=== PATIENT | male | born 1965 | race African-American/Black ===

== ENCOUNTER 2016-11-03 18:04 | Emergency (ER) | payer BC ==
[2016-11-03 18:22] VITALS: TEMP 98.9
--- NOTE | 2016-11-03 19:07 | ED ---
General Adult HPI - General Chief complaint: Recheck/Abnormal Lab/Rx Stated complaint: Blood pressure Time Seen by Provider: 11/03/16 18:35 Source: patient Mode of arrival: ambulatory Limitations: no limitations - History of Present Illness Initial comments: Is a 51-year-old male with history of hypertension or presents emergency department for elevated blood pressures were last week. He states that his blood pressures of been running 160-170 systolic over 110-120 diastolic. He states that he is generalized always throughout the day and intermittent headaches. He also states he has constant chest pain that is been there for the last 5 years. He saw his doctor 3 days ago who placed him on a new blood pressure medication and he just started taking it yesterday. He states that today he had another high blood pressure readings is having come emergency department. He denies any focal weakness, numbness, tingling, or difficulty with gait. He states his headache is very mild. No head trauma. He's been compliant with all his other medications. He does state that he recently had a stress test that was normal within the last couple of months. - Related Data Home Medications Medication Instructions Recorded Confirmed Aspirin 162 tab PO BID 08/11/16 11/03/16 Carvedilol [Carvedilol] 25 mg PO BID 08/11/16 11/03/16 Hydrochlorothiazide [Hydrodiuril] 25 mg PO DAILY 08/11/16 11/03/16 amLODIPine BESYLATE [Amlodipine 10 mg PO BID 08/11/16 11/03/16 Besylate] Irbesartan [Avapro] 300 mg PO DAILY 11/03/16 11/03/16 Allergies Allergy/AdvReac Type Severity Reaction Status Date / Time cat dander Allergy Cough Verified 11/03/16 18:37 Review of Systems ROS Statement: Those systems with pertinent positive or pertinent negative responses have been documented in the HPI. ROS Other: All systems not noted in ROS Statement are negative. Past Medical History Past Medical History: Hypertension, Musculoskeletal Disorder Additional Past Medical History / Comment(s): LT KNEE PAIN. RT PLANTAR FASCIITIS. HX FREQ NOSE BLEEDS, WORSE LATELY. History of Any Multi-Drug Resistant Organisms: None Reported Past Surgical History: Heart Catheterization Past Anesthesia/Blood Transfusion Reactions: No Reported Reaction Past Psychological History: No Psychological Hx Reported Smoking Status: Never smoker Past Alcohol Use History: None Reported Past Drug Use History: None Reported - Past Family History Brother(s) Family Medical History: Cancer General Exam - General Exam Comments Initial Comments: Constitutional: Awake alert Appears comfortable Head: Normocephalic atraumatic Eyes: no conjunctival injection No scleral icterus EOMI Neck: No JVD Supple Heart: Regular rate rhythm normal S1-S2 no murmurs Lungs: Clear to auscultation bilaterally No wheezing No rales Abdomen: Soft nondistended nontender Extremities: Non edematous DP pulses intact Radial pulses intact Neuro: A&Ox3 No focal neurologic deficits Psych: Appropriate mood and affect Limitations: no limitations Course Vital Signs 11/03/16 11/03/16 11/03/16 18:18 19:08 20:14 Temperature 98.9 F Pulse Rate 74 70 Respiratory 18 12 Rate Blood Pressure 174/88 145/93 140/80 O2 Sat by Pulse 99 100 100 Oximetry Medical Decision Making - Medical Decision Making Patient is comfortable at this time. Has no symptoms currently. Blood pressure was improved. Labwork was reviewed and unremarkable. EKG was also unremarkable. Troponin negative. At this time he can follow-up with his primary doctor. I told him to continue taking his oral hypertensives. He can check his blood pressure twice a day keep a log. If he has any worsening or changing symptoms she can return emergency Department. All questions were answered. - Lab Data Result diagrams: 11/03/16 19:00 11/03/16 19:00 Lab Results 11/03/16 11/03/16 11/03/16 Range/Units 19:00 19:00 19:00 WBC 5.5 (3.8-10.6) k/uL RBC 5.70 (4.30-5.90) m/uL Hgb 14.5 (13.0-17.5) gm/dL Hct 46.0 (39.0-53.0) % MCV 80.6 (80.0-100.0) fL MCH 25.5 (25.0-35.0) pg MCHC 31.7 (31.0-37.0) g/dL RDW 14.7 (11.5-15.5) % Plt Count 235 (150-450) k/uL Neutrophils % 47 % Lymphocytes % 36 % Monocytes % 7 % Eosinophils % 7 % Basophils % 1 % Neutrophils # 2.6 (1.3-7.7) k/uL Lymphocytes # 2.0 (1.0-4.8) k/uL Monocytes # 0.4 (0-1.0) k/uL Eosinophils # 0.4 (0-0.7) k/uL Basophils # 0.1 (0-0.2) k/uL PT 12.4 H (9.0-12.0) sec INR 1.3 (<1.1) APTT 25.7 (22.0-30.0) sec Sodium 140 (137-145) mmol/L Potassium 3.5 (3.5-5.1) mmol/L Chloride 96 L (98-107) mmol/L Carbon Dioxide 32 H (22-30) mmol/L Anion Gap 12 mmol/L BUN 16 (9-20) mg/dL Creatinine 1.16 (0.66-1.25) mg/dL Est GFR (MDRD) Af Amer >60 (>60 ml/min/1.73 sqM) Est GFR (MDRD) Non-Af >60 (>60 ml/min/1.73 sqM) Glucose 106 H (74-99) mg/dL Calcium 9.9 (8.4-10.2) mg/dL Troponin I (0.000-0.034) ng/mL 11/03/16 Range/Units 19:00 WBC (3.8-10.6) k/uL RBC (4.30-5.90) m/uL Hgb (13.0-17.5) gm/dL Hct (39.0-53.0) % MCV (80.0-100.0) fL MCH (25.0-35.0) pg MCHC (31.0-37.0) g/dL RDW (11.5-15.5) % Plt Count (150-450) k/uL Neutrophils % % Lymphocytes % % Monocytes % % Eosinophils % % Basophils % % Neutrophils # (1.3-7.7) k/uL Lymphocytes # (1.0-4.8) k/uL Monocytes # (0-1.0) k/uL Eosinophils # (0-0.7) k/uL Basophils # (0-0.2) k/uL PT (9.0-12.0) sec INR (<1.1) APTT (22.0-30.0) sec Sodium (137-145) mmol/L Potassium (3.5-5.1) mmol/L Chloride (98-107) mmol/L Carbon Dioxide (22-30) mmol/L Anion Gap mmol/L BUN (9-20) mg/dL Creatinine (0.66-1.25) mg/dL Est GFR (MDRD) Af Amer (>60 ml/min/1.73 sqM) Est GFR (MDRD) Non-Af (>60 ml/min/1.73 sqM) Glucose (74-99) mg/dL Calcium (8.4-10.2) mg/dL Troponin I <0.012 (0.000-0.034) ng/mL Disposition Clinical Impression: Hypertension Disposition: HOME SELF-CARE Condition: Stable Instructions: Hypertension (ED) Referrals: Javier Martinez MD [Primary Care Provider] - 1-2 days
[2016-11-03 19:15] LABS: Basophils # (A) 0.1 k/uL (0-0.2); Basophils % (A) 1 %; CH 26.1; CHCM 32.5; Eosinophils # (A) 0.4 k/uL (0-0.7); Eosinophils % (A) 7 %; HDW 2.62; HGB 14.5 gm/dL (13.0-17.5); Luc # (Auto) 0.11; Luc % (Auto) 2; Lymphocytes % (A) 36 %; MCH 25.5 pg (25.0-35.0); MCHC 31.7 g/dL (31.0-37.0); MCV 80.6 fL (80.0-100.0); Monocytes # (A) 0.4 k/uL (0-1.0); Monocytes % (A) 7 %; Neutrophils # (A) 2.6 k/uL (1.3-7.7); Neutrophils % (A) 47 %; RDW 14.7 % (11.5-15.5); WBC 5.5 k/uL (3.8-10.6)
[2016-11-03 19:23] LABS: Anion Gap 12 mmol/L; Blood Urea Nitrogen 16 mg/dL (9-20); Calcium 9.9 mg/dL (8.4-10.2); Carbon Dioxide 32 mmol/L (22-30); Chloride 96 mmol/L (98-107); Glucose 106 mg/dL (74-99); Non-African American GFR(MDRD) >60 (>60 ml/min/1.73 sqM); Potassium 3.5 mmol/L (3.5-5.1); Sodium 140 mmol/L (137-145)
[2016-11-03 19:25] LABS: INR 1.3 (<1.1); Partial Thromboplastin Time 25.7 sec (22.0-30.0); Prothrombin Time 12.4 sec (9.0-12.0)
[2016-11-03 20:16] VITALS: BP 140/80; PULSE 70; RESP 12
== END 2016-11-03 20:14 | disposition home or self-care (01) ==
LOC: EC 18:04
DX: I10 Essential (primary) hypertension (principal); R07.9 Chest pain, unspecified; Z98.61 Coronary angioplasty status; Z79.82 Long term (current) use of aspirin; Z79.899 Other long term (current) drug therapy
CPT/HCPCS: 36415; 80048; 84484; 85025; 85610; 85730; 93005; 99283

== ENCOUNTER 2016-11-23 08:31 | Day surgery (SDC) | payer BC ==
[2016-11-23] MEDS ORDERED: LIDOCAINE 1% 20 ML VIAL (10MG/ML) FOR IV START INTRADERMA PRN (09:24)
[2016-11-23] MEDS ORDERED: LACTATED RINGERS 1,000 ML IV SCH (09:24)
[2016-11-23 09:34] VITALS: RESP 16; TEMP 97.8
[2016-11-23] MEDS ORDERED: LIDOCAINE 1% 20 ML VIAL (10MG/ML) FOR IV START INTRADERMA ONE (09:42)
[2016-11-23] MEDS ORDERED: PROPOFOL 10 MG/ML 20 ML VIAL IV ONE (10:21)
--- NOTE | 2016-11-23 10:46 | P.PCN ---
Date of Procedure: 11/23/16 Procedure(s) Performed: Procedure: Total colonoscopy. Preoperative diagnosis: Screening for neoplasia. Postoperative diagnosis: Exam within normal limits. Preparation: HalfLytely prep. Sedation: Was provided by anesthesia. Brief clinical history: The patient is a 51-year-old male who is referred for this evaluation for screening for neoplasia age being his risk factor. He has no abdominal complaints, bleeding or anemia. No family history of colon cancer. This would be his first colonoscopy. Procedure: With the patient on his left lateral decubitus position and after informed consent and adequate sedation, the perianal area was inspected and it did not show any fissures or fistulas. There were no masses felt on digital rectal examination. The Olympus CFQ 160L video colonoscope was then inserted in the rectum and the usual fashion and advanced to the cecum. The preparation was good. The mucosa appeared healthy. No polyps or tumors were seen or any obvious diverticular disease or other pathology. I retroflexed endoscope in the rectum before the endoscope was withdrawn. The patient tolerated the procedure well. Plan: The patient was reassured. He will follow up with you as planned. In the absence of family history of colon cancer or finding of polyps today, I recommended a repeat exam in 10 years. He will follow up with you as planned.
[2016-11-23 11:05] VITALS: BP 123/87; PULSE 64
== END 2016-11-23 11:22 | disposition home or self-care (01) ==
LOC: ORWHC2ENDO 08:31
DX: Z12.11 Encounter for screening for malignant neoplasm of colon (principal); I10 Essential (primary) hypertension; Z91.09 Other allergy status, other than to drugs and biological substances; Z79.82 Long term (current) use of aspirin; Z79.899 Other long term (current) drug therapy
CPT/HCPCS: J2704; G0121; 99153

== ENCOUNTER → 2019-09-05 | Outpatient (CLI) | payer BC ==
--- NOTE | 2019-09-05 08:22 | CT ---
EXAMINATION TYPE: CT sinus wo con DATE OF EXAM: 09/05/2019 COMPARISON: 05/08/2016 HISTORY: acute sinusitis CT DLP: 526.[address] of the paranasal sinuses was performed in the axial and coronal planes. Bone and soft tissue settings are submitted. The paranasal sinuses demonstrate normal aeration and development. As mucosal thickening involving the bilateral maxillary sinuses left greater than right. There is gabe rowing of the ostiomeatal units bilaterally without obstruction. Mild mucosal thickening is seen of t he ethmoid air cells. Sphenoid sinus demonstrates mild mucosal thickening. Frontal sinuses also demon strate minimal mucosal thickening on the right. The nasal septum is midline. No bony destructive changes are seen within the field of view. IMPRESSION: Chronic pansinusitis. Pansinusitis.
--- NOTE | 2019-09-05 10:08 | US ---
EXAMINATION TYPE: US renal artery duplex complet DATE OF EXAM: 09/05/2019 COMPARISON: NONE CLINICAL HISTORY: I10 hypertension. Pt states known HTN x many years, controlled with medication MEASUREMENTS: RENAL SIZE: Rt Kidney: 11.5 x 4.2 x 5.4 cm Lt Kidney: 11.0 x 6.2 x 5.6 cm RESISTANCE INDEX Right: 0.6 Left: 0.6 RA/AO RATIO (< 3.5 ) Right: 1.2 Left: 1.0 RA VELOCITY ( < 180 cm/s) Right: 95.3 Left: 84.4 No evidence of significant renal artery stenosis bilaterally Incidental finding accessory spleen IMPRESSION: No sonographic evidence of renal arterial stenosis. 4
== END ==
LOC: RADCTMAIN 07:41
PROVIDERS: ATTEND Physician Assistant
DX: I10 Essential (primary) hypertension (principal); J32.4 Chronic pansinusitis
CPT/HCPCS: 70486; 93975